=== PATIENT | female | born 1940 | race Caucasian/White ===

== ENCOUNTER → 2016-12-06 | Outpatient (CLI) | payer OTHER ==
[~2016-12-06] MED LIST: ASPCH81X PO; CALC500C70 PO; CLR10 PO; GLUCTAB7 PO; MULT-506 PO; ROSU40TA PO
[2016-12-06 12:16] LABS: BASO % 0.2 %; BASO ABS # 0.01 K/uL (0-0.2); COMPLETE YES; EOS % 3.8 %; IG% 0.2 %; LYMPH % 31.5 %; LYMPH ABS # 1.32 K/uL (1.2-3.4); MEAN CELL VOLUME 90.3 fL (80-100); MEAN CORPUSCULAR HEMOGLOBIN 30.1 pg (25-34); MEAN CORPUSCULAR HGB CONC 33.3 g/dl (32-36); MEAN PLATELET VOLUME 10.1 fL (7.4-10.4); MONO % 10.5 %; NEUT % 53.8 %; PLATELET COUNT 181 K/uL (130-400); RED BLOOD COUNT 4.65 M/uL (4.2-5.4); WHITE BLOOD COUNT 4.19 K/uL (4.8-10.8)
[2016-12-06 12:40] LABS: BLOOD UREA NITROGEN 16 mg/dl (7-18); BUN/CREATININE RATIO 19.8 (10-20); CALCIUM 9.5 mg/dl (8.5-10.1); CARBON DIOXIDE 28 mmol/L (21-32); CHLORIDE 108 mmol/L (98-107); CREATININE 0.82 mg/dl (0.60-1.20); GLUCOSE 115 mg/dl (70-99); POTASSIUM 4.7 mmol/L (3.5-5.1); SODIUM 141 mmol/L (136-145)
== END | disposition home or self-care (01) ==
LOC: C.LAB1850 09:25
PROVIDERS: ATTEND Physician Assistant
DX: S62.03 Fracture of proximal third of navicular [scaphoid] bone of wrist (principal); X58.XXXD Exposure to other specified factors, subsequent encounter

== ENCOUNTER → 2016-12-28 | Day surgery (SDC) | payer OTHER ==
[2016-12-13 09:01] VITALS: Ht 153.7 cm; Wt 63.6 kg
[~2016-12-28] VITALS: Ht 153.7 cm; Wt 63.6 kg
[~2016-12-28] MED LIST changes: +ATROPINE SULFATE 0.1 MG/ML 5ML SYR IV PRN; +CEFAZOLIN 2000 MG/60 ML D5W IV SCH; +DEXAMETHASONE SOD INJ 4 MG/ML VIAL ONE; +EpHEDrine SULFATE INJ 50 MG/ML AMP IV PRN; +FENTANYL CITRATE INJ 50 MCG/1 ML 2 ML VIAL IV PRN; +FENTANYL CITRATE INJ 50 MCG/1 ML 2 ML VIAL ONE; +LACTATED RINGER'S 1000ML 1,000 ML IV SCH; +LEVOFLOXACIN 500 MG TAB PO SCH; +LIDOCAINE HCL 2% 2 ML VIAL (20MG/ML) ONE; +MIDAZOLAM HCL 1 MG/ML 2ML VIAL ONE; +ONDANSETRON INJ 2 MG/ML 2 ML VIAL IV PRN; +ONDANSETRON INJ 2 MG/ML 2 ML VIAL ONE; +OXYCODONE/ACETAMINOPHEN 5-325 TAB PO PRN; +PROPOFOL IV EMULSION 10 MG/ML 20 ML VIAL IV ONE; +ROPIVACAINE 0.5% 5 MG/ML 30 ML VIAL ONE; +SODIUM CHLORIDE 0.9% 1000ML 1,000 ML IV SCH
--- NOTE | 2016-12-28 09:55 | History & Physical Bridge Note ---
H&P Re-Evaluation Bridge Note: I have examined the patient, reviewed the History & Physical and in the interval since the performance of the History & Physical I have noted the following changes of clinical significance: No changes noted
--- NOTE | 2016-12-28 09:56 | Discharge Instructions ---
Discharge Instructions Date of Service Dec 28, 2016. 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 Post Anesthesia Instructions: If you have had General Anesthesia or IV Sedation: * Do not drive today. * Resume driving when surgeon permits. * Do not make important decisions or sign legal documents today. * Call surgeon for: 1. Temperature elevations greater than 101 degrees F. 2. Uncontrollable pain. 3. Excessive bleeding. 4. Persistent nausea and vomiting. 5. Medication intolerance (nausea, vomiting or rash). * For nausea and vomiting use only clear liquids such as: tea, soda, bouillon until nausea subsides, then gradually increase diet as tolerated. * If you have any concerns or questions, call your surgeon's office. If physician is unavailable and it is an emergency, call 911 or go to the nearest emergency room. . Instructions / Follow-Up Instructions / Follow-Up DIET: * Resume previous diet. MEDICATIONS: * Please take your prescriptions as instructed at your pre-op appointment and/ or see medication discharge instructions listed above. * If concerns develop, call your physician's office at . SPECIAL CARE INSTRUCTIONS: * Ice/Elevate as instructed. * Keep dressing clean, dry, intact. * Your surgical extremity may be discolored due to prepping agents used on the skin. A bluish-green tint is a normal variant and should not cause alarm. Call your doctor at [phone] if: * Temperature above 101 degrees * Pain not relieved by pain medicine ordered * There is increased drainage or redness from any incision * You have any unanswered questions, problems or concerns. FOLLOW UP VISIT: * If not already scheduled, please call the office at to schedule a follow-up appointment. Diet Recommendations Recommended Home Diet: resume previous diet Procedures Procedures Performed: 4 corner wrist fusion with scapoidectomy Pending Studies Studies pending at discharge: no Medical Emergencies . Who to Call and When: Medical Emergencies: If at any time you feel your situation is an emergency, please call 911 immediately. . Non-Emergent Contact Non-Emergency issues call your: Specialist Call Non-Emergent contact if: temperature is above 101.5 . . "Provider Documentation" section prepared by Tucker Myers. .
--- NOTE | 2016-12-28 11:48 | [facility] Post Operative Brief Note ---
Immediate Operative Summary Operative Date Dec 28, 2016. Pre-Operative Diagnosis Right Wrist Osteoarthritis, Scaphoid Nonunion Post-Operative Diagnosis same Procedure(s) Performed Right Wrist Open Four Corner Fusion With Scaphoidectomy Surgeon Dr. Marissa Myers Wedding Coordinator Surgeon(s) Tigre Barboza PA-C Estimated Blood Loss 20cc Findings slac wrist Fluids (cc crystalloids) 1000cc Specimens none Drains none Anesthesia LMA Complication(s) None Disposition Recovery Room / PACU
--- NOTE | 2016-12-28 11:55 | [facility] Operative Report ---
Operative Report Date of Service Dec 28, 2016. Operative Report Preoperative diagnosis: [facility] wrist Postoperative diagnosis: Same Surgeon: Louis Welder Plastic: Tamra: No resident or fellow available. Operation: Scaphoid ectomy right wrist with 4 corner fusion/spider plate Perioperative situation: Medically cleared female with intractable wrist pain. Physical exam x-ray MRI scan consistent with end-stage slack wrist with reasonable radiolunate cartilage. Procedure: After the patient was appropriately identified site verified consent verified and antibiotics confirmed as being given the right upper extremity was prepped and draped usual routine fashion with the patient is supine position. The tourniquet was inflated to 250 mmHg after exsanguination of the limb with a rubber Esmarch bandage for follow proximally 50 minutes. A dorsal approach to the wrist was made. Extensor retinaculum was then Z lengthened and open. All tendons were protected. They were appropriately retracted. The joint was then entered. Scaphoid was then identified and resected it was in 2 pieces. Styloid was then resected with [place]. Fluoroscopy revealed removal of the scaphoid. All cartilage was then removed from the remaining carpal bones including the hamate fusiform lunate and the capitate. Using a spider plate technique reaming was carried out to get the miniplate on the position. Once this was done the plate was fixed to the hamate with a 16 mm screw and then with 6 additional screws fixed to the lunate capitate and fusiform with excellent fixation. A centering peg was then removed and the area was then bone grafted nicely with trimmings from the scaphoid. The wound was irrigated prior to this. Once this was completed the capsule was closed with 2-0 Vicryl and the Z lengthened retinaculum with the same. Wound was then irrigated one final time and closed with horizontal mattress 3-0 nylon sutures and dressed appropriately and splinted in a neutral position. Multiple plane fluoroscopy revealed excellent positioning of the bone and of the plate and screws. The procedure was then terminated. The patient was in removed to the recovery room in satisfactory condition having tolerated the procedure well. Estimated blood loss 20 mL, crystalloid 1000 mL. Summary of implants spider plate and 7 screws measuring the length from 10-16 mm screw 1. Dictated not read. Carbon copy to Dr. billingsley in the hospital chart. I attest to the content of the Intraoperative Record and any orders documented therein. Any exceptions are noted below.
--- NOTE | 2016-12-28 12:04 | [facility] Operative Report ---
Operative Report Operative Date Dec 28, 2016. Pre-Operative Diagnosis Right Wrist Osteoarthritis, Scaphoid Nonunion Post-Operative Diagnosis Right wrist same Procedure(s) Performed Right Wrist Open Four Corner Fusion With Scaphoidectomy Surgeon Dr. Marissa Myers Mortgage Loan Counselor Surgeon(s) Tigre Barboza PA-C Estimated Blood Loss 20cc Findings DJD of the right wrist Fluids (cc crystalloids) 1000cc Specimens none Drains none Anesthesia regional block with general anesthesia Complication(s) None Disposition Recovery Room / PACU Indications This 76-year-old white female presented the office with complaints of persisting right wrist pain. She had tried conservative care measures without success. Preoperative x-rays were obtained. She elected to proceed with surgical intervention after being educated about potential risks and outcomes. 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 She was prepped and draped in usual sterile fashion. Please see Dr. Myers's operative report for specifics of the procedure. I was present for the entire case from initial patient positioning through final wound closure. Assistance was provided in tissue traction, hemostasis, hardware placement, final wound closure, and final splinting. Patient was taken to the recovery room in satisfactory condition. I attest to the content of the Intraoperative Record and any orders documented therein. Any exceptions are noted below.
--- NOTE | 2016-12-28 13:10 | Anesthesia Progress Nt - [facility] ---
Anesthesia Post Op Note Date & Time Dec 28, 2016 at 13:10 Vital Signs Pain Intensity: 0 Vital Signs Past 12 Hours Date Time Temp Pulse Resp B/P (MAP) Pulse Ox O2 Delivery O2 Flow Rate FiO2 12/28/16 12:34 36.4 12/28/16 12:31 136/75 (90) 12/28/16 12:29 61 14 12/28/16 12:29 62 14 93 12/28/16 12:27 122/74 (90) 12/28/16 12:26 Room Air 12/28/16 12:24 61 18 12/28/16 12:24 61 18 96 12/28/16 12:22 123/64 (75) 12/28/16 12:19 64 12 98 12/28/16 12:19 61 12 12/28/16 12:16 144/60 (76) 12/28/16 12:14 49 13 98 12/28/16 12:14 49 13 12/28/16 12:12 143/64 (75) 12/28/16 12:09 54 12 97 12/28/16 12:09 56 12 12/28/16 12:07 126/71 (102) 12/28/16 12:04 57 13 12/28/16 12:04 60 13 98 12/28/16 12:01 125/75 (88) 12/28/16 11:59 68 13 12/28/16 11:59 68 13 97 12/28/16 11:56 113/59 (85) 12/28/16 11:55 36.2 67 16 113/59 97 Diffusion Mask 5 12/28/16 10:26 128/81 12/28/16 10:25 55 12/28/16 10:25 55 0 99 12/28/16 10:22 134/86 12/28/16 10:20 56 12/28/16 10:20 60 16 161/84 98 12/28/16 09:42 36.6 62 16 139/77 (97) 96 Room Air Notes Mental Status: alert / awake / arousable, participated in evaluation Pt Amnestic to Procedure: Yes Nausea / Vomiting: adequately controlled Pain: adequately controlled Airway Patency, RR, SpO2: stable & adequate BP & HR: stable & adequate Hydration State: stable & adequate Anesthetic Complications: no major complications apparent
[2016-12-28 13:45] VITALS: BP 122/69; PULSE 62; O2SAT 98
== END | disposition home or self-care (01) ==
LOC: X.SURG 09:31
PROVIDERS: ATTEND Physical Medicine & Rehabilitation Sports Medicine
DX: M19.031 Primary osteoarthritis, right wrist (principal); E78.00 Pure hypercholesterolemia, unspecified; Z79.82 Long term (current) use of aspirin; Z79.899 Other long term (current) drug therapy

== ENCOUNTER → 2017-02-07 | Outpatient (CLI) | payer OTHER ==
[~2017-02-07] MED LIST changes: -ATROPINE SULFATE 0.1 MG/ML 5ML SYR IV PRN; -CEFAZOLIN 2000 MG/60 ML D5W IV SCH; -DEXAMETHASONE SOD INJ 4 MG/ML VIAL ONE; -EpHEDrine SULFATE INJ 50 MG/ML AMP IV PRN; -FENTANYL CITRATE INJ 50 MCG/1 ML 2 ML VIAL IV PRN; -FENTANYL CITRATE INJ 50 MCG/1 ML 2 ML VIAL ONE; -LACTATED RINGER'S 1000ML 1,000 ML IV SCH; -LEVOFLOXACIN 500 MG TAB PO SCH; -LIDOCAINE HCL 2% 2 ML VIAL (20MG/ML) ONE; -MIDAZOLAM HCL 1 MG/ML 2ML VIAL ONE; -ONDANSETRON INJ 2 MG/ML 2 ML VIAL IV PRN; -ONDANSETRON INJ 2 MG/ML 2 ML VIAL ONE; -OXYCODONE/ACETAMINOPHEN 5-325 TAB PO PRN; -PROPOFOL IV EMULSION 10 MG/ML 20 ML VIAL IV ONE; -ROPIVACAINE 0.5% 5 MG/ML 30 ML VIAL ONE; -SODIUM CHLORIDE 0.9% 1000ML 1,000 ML IV SCH
== END | disposition home or self-care (01) ==
LOC: C.RDSM 08:30
PROVIDERS: ATTEND Physical Medicine & Rehabilitation Sports Medicine
DX: S62.031K Displaced fracture of proximal third of navicular [scaphoid] bone of right wrist, subsequent encounter for fracture with nonunion (principal); X58.XXXD Exposure to other specified factors, subsequent encounter

== ENCOUNTER → 2017-03-07 | Outpatient (CLI) | payer OTHER | END | disposition home or self-care (01) | LOC: C.RDSM 15:00 | PROVIDERS: ATTEND Physical Medicine & Rehabilitation Sports Medicine | DX: S62.031K Displaced fracture of proximal third of navicular [scaphoid] bone of right wrist, subsequent encounter for fracture with nonunion (principal); X58.XXXA Exposure to other specified factors, initial encounter ==

== ENCOUNTER → 2017-04-18 | Outpatient (CLI) | payer OTHER | END | disposition home or self-care (01) | LOC: C.RDSM 15:02 | PROVIDERS: ATTEND Physical Medicine & Rehabilitation Sports Medicine | DX: S62.031K Displaced fracture of proximal third of navicular [scaphoid] bone of right wrist, subsequent encounter for fracture with nonunion (principal); X58.XXXD Exposure to other specified factors, subsequent encounter ==

== ENCOUNTER → 2017-05-23 | Outpatient (CLI) | payer OTHER ==
--- NOTE | 2017-05-23 09:00 | DIAGNOSTIC IMAGING REPORT ---
R WRIST MIN 3 VIEWS ROUTINE CLINICAL HISTORY: F/U RIGHT WRIST SURGERY COMPARISON: 04/18/2017 DISCUSSION: Postsurgical changes are visualized. The patient is status post a navicular resection. There is evidence for a posterior carpal fusion with a metallic disc and 7 screws. Arthritic changes are evident. There are no acute fractures. IMPRESSION: Postsurgical and degenerative changes similar to the preceding examination. Electronically signed by: Christ Keene M.D. 05/23/2017 8:59 AM Dictated Date/Time: 05/23/2017 8:58 AM
--- NOTE | 2017-05-23 09:14 | DIAGNOSTIC IMAGING REPORT ---
Right thumb pain CLINICAL HISTORY: RIGHT THUMB PAIN COMPARISON: None. DISCUSSION: There are postsurgical changes present within the wrist. No acute fractures are visualized. There are osteoarthritic changes present the first carpometacarpal joint, metacarpal phalangeal joint, as well as the interphalangeal joint. IMPRESSION: Osteoarthritic change. No acute fractures identified. Electronically signed by: Christ Keene M.D. 05/23/2017 9:13 AM Dictated Date/Time: 05/23/2017 9:12 AM
== END | disposition home or self-care (01) ==
LOC: C.RDSM 11:31
PROVIDERS: ATTEND Physician Assistant
DX: M65.311 Trigger thumb, right thumb (principal)

== ENCOUNTER → 2017-06-01 | Outpatient (CLI) | payer OTHER ==
[~2017-06-01] MED LIST changes: -CLR10 PO; +LORA10CA2 PO
[2017-06-01 10:02] LABS: HEMATOCRIT 40.9 % (37-47); MEAN CELL VOLUME 89.1 fL (80-100); MEAN CORPUSCULAR HEMOGLOBIN 30.5 pg (25-34); MEAN CORPUSCULAR HGB CONC 34.2 g/dl (32-36); MEAN PLATELET VOLUME 9.6 fL (7.4-10.4); PLATELET COUNT 187 K/uL (130-400); RED BLOOD COUNT 4.59 M/uL (4.2-5.4); WHITE BLOOD COUNT 4.69 K/uL (4.8-10.8)
[2017-06-01 10:49] LABS: BLOOD UREA NITROGEN 19 mg/dl (7-18); BUN/CREATININE RATIO 19.3 (10-20); CALCIUM 9.2 mg/dl (8.5-10.1); CARBON DIOXIDE 27 mmol/L (21-32); CHLORIDE 107 mmol/L (98-107); CREATININE 0.96 mg/dl (0.60-1.20); GLUCOSE 123 mg/dl (70-99); POTASSIUM 4.1 mmol/L (3.5-5.1); SODIUM 137 mmol/L (136-145)
== END | disposition home or self-care (01) ==
LOC: C.LAB1850 09:15
PROVIDERS: ATTEND Physician Assistant
DX: Z01.818 Encounter for other preprocedural examination (principal); M65.311 Trigger thumb, right thumb

== ENCOUNTER → 2017-06-14 | Day surgery (SDC) | payer OTHER ==
[2017-05-26 08:10] VITALS: Ht 156.2 cm; Wt 63.6 kg
[~2017-06-14] VITALS: Ht 156.2 cm; Wt 63.6 kg
[~2017-06-14] MED LIST changes: +ATROPINE SULFATE 0.1 MG/ML 5ML SYR IV PRN; +BUPIVACAINE 0.5 % 5 MG/1 ML PF 10ML VIAL ONE; +CEFAZOLIN 2000MG IV PUSH 10 ML IV SCH; +EpHEDrine SULFATE INJ 50 MG/ML AMP IV PRN; +FENTANYL CITRATE INJ 50 MCG/1 ML 2 ML VIAL IV PRN; +FENTANYL CITRATE INJ 50 MCG/1 ML 2 ML VIAL ONE; +HYDROmorphone INJ 1 MG/ML SYR IV PRN; +LACTATED RINGER'S 1000ML 1,000 ML IV SCH; +LIDOCAINE HCL 2% 2 ML VIAL (20MG/ML) ONE; +LIDOCAINE HCL 2% LOCAL 20 ML VIAL ONE; +MIDAZOLAM HCL 1 MG/ML 2ML VIAL ONE; +ONDANSETRON INJ 2 MG/ML 2 ML VIAL IV PRN; +PROPOFOL IV EMULSION 10 MG/ML 20 ML VIAL IV ONE
--- NOTE | 2017-06-14 06:52 | History & Physical Bridge Note ---
H&P Re-Evaluation Bridge Note: I have examined the patient, reviewed the History & Physical and in the interval since the performance of the History & Physical I have noted the following changes of clinical significance: consent obtained.No changes noted
--- NOTE | 2017-06-14 06:54 | Discharge Instructions ---
Discharge Instructions Date of Service Jun 14, 2017. Visit Reason for Visit: Right Thumb Trigger Digit Discharge Discharge Diagnosis / Problem: same Discharge Goals Goal(s): Decrease discomfort, Improve function Medications Stopped Medications Name(s): glucosamine and asa stopped. last dose 5 days ago. Restart Stopped Medication(s): resume/use all meds as scripts direct Activity Recommendations Activity Limitations: as noted below Lifting Limitations: until after follow-up appointment Exercise/Sports Limitations: until after follow-up appointment May Resume Sexual Activity: after follow-up appointment Shower/Bathe: keep incision dry Driving or Machine Use: resume 1 day after discharge Anesthesia . Post Anesthesia Instructions: If you have had General Anesthesia or IV Sedation: * Do not drive today. * Resume driving when surgeon permits. * Do not make important decisions or sign legal documents today. * Call surgeon for: 1. Temperature elevations greater than 101 degrees F. 2. Uncontrollable pain. 3. Excessive bleeding. 4. Persistent nausea and vomiting. 5. Medication intolerance (nausea, vomiting or rash). * For nausea and vomiting use only clear liquids such as: tea, soda, bouillon until nausea subsides, then gradually increase diet as tolerated. * If you have any concerns or questions, call your surgeon's office. If physician is unavailable and it is an emergency, call 911 or go to the nearest emergency room. . Instructions / Follow-Up Instructions / Follow-Up The following are instructions to follow after minor hand surgery. ACTIVITY RECOMMENDATIONS: * Minimize activity until your first visit after surgery. * No excessive walking, jogging, sports or laboring. * Return to activity is individualized. Most patients are able to return to everyday activities within 2 weeks. * Return to sports or intensive labor usually occurs at 1-2 months. * DRIVING: Driving may be resumed when you feel you have adequate pain control and use of the hand. * BATHING: You may shower or sponge-bathe immediately after surgery. The dressing will need to be covered with a plastic bag or plastic wrap until the dressing is changed on the fourth or fifth day after surgery. Once the dressing has been changed on the fourth or fifth day after surgery, you may shower and get the incision wet. * Wash with regular soap and water. * Do not bathe (submerge the incision), soak, swim or use a hot tub until the incision is completely healed over with normal skin and the doctor has given the OK to proceed. * There is no need to apply any ointments, powders or salves to your incision. * Do not apply alcohol or hydrogen peroxide directly to the incision. Diluted peroxide (50:50 mixture with sterile saline) may be used to clean dried blood from around the incision area. WORK/SCHOOL: * You may return to sedentary work or school when you are feeling comfortable. This is usually 3-7 days after surgery. * Expect increased discomfort with increased activity. Continue to elevate and ice the hand as much as possible. DIET: * Resume previous diet. MEDICATIONS: * You will have a prescription for pain medication and an anti-inflammatory medication after surgery. Use the pain pills for severe pain and the anti-inflammatory for less severe pain. * Once the pain pills have run out, try to use the anti-inflammatory. If this is not effective then contact the office for assistance. * The pain medication may cause nausea, constipation and sleepiness. You should see how they affect you before driving or similar activity. * The anti-inflammatory may cause stomach upset and bleeding. If this occurs, let your doctor know immediately . * Some patients may need blood clot prevention. This can be done with either a pill or a simple shot. Your doctor will advise you on when to begin these medications and how to take them. * Do not take aspirin or other anti-inflammatory products (i.e. Advil or Aleve ) if taking blood thinner medication. * Take a stool softener like Colace or a stimulant like Senokot to prevent constipation. SPECIAL CARE INSTRUCTIONS: ICE: * Do not apply ice directly to the skin. * Use a thin dressing or stockinet between the skin and ice bag. The dressing in place after surgery will suffice. * Apply ice for 20-30 minutes and repeat every 2-4 hours. This is especially important for the first 3-7 days after surgery. * Once the pain improves, use ice as needed. ELEVATION: * Keep your hand elevated at or above the level of your heart as much as possible. * Expect some increased discomfort and swelling if you allow your hand to hang down for any length of time. DRESSING: * Your dressing will be changed 4-5 days after surgery by the physical therapist or physician's recreation assistant. Leave your dressing intact until this time. * You may then change your dressing daily with clean dry gauze or Band-aids and a soft wrap or stockinet. * Always wash your hands prior to touching the incision area. * Once the stitches are removed, you may leave the wound open to air or cover with a thin bandage. * There is no need to apply any ointments, powders or salves to your incision. * Expect some bloody drainage for the first few days after surgery. * Leave the tape strips in place (if present) for 5-7 days. * The initial dressing after surgery may become soaked with blood or fluid which is normal. You may reinforce your dressing with clean, dry gauze as needed. BRACE: * Bracing is generally not needed after routine hand surgery. THERAPY: * Physical therapy may be prescribed after your surgery. * For carpal tunnel and trigger digit surgery you may begin moving your fingers and wrist immediately after surgery as tolerated. * Be careful to not overuse. * Once the sutures are removed, further range of motion exercises can be performed. * Hand incisions may be very sensitive for a few months after surgery so avoid excessive pressure on the incision. If necessary, use a padded weightlifters' glove. * You may massage the incision with skin cream to make it less sensitive and reduce scarring. * Hand strength usually returns with normal use. * If needed, squeezing a soft sponge or Play-dough may help. * Your doctor will recommend physical therapy if necessary. PROBLEMS/QUESTIONS: * If you have any problems such as severe pain, numbness, tingling or high fevers or if you have any questions, please contact the office at [phone]. * It is not uncommon to have some numbness and tingling after the surgery especially if you have had a nerve block done. This should gradually improve over the first 1- 2 days. If this persists longer or worsens then contact the office. FOLLOW UP VISIT: * If not already scheduled, please call the office at to schedule follow-up appointments for approximately 10 days, 6 weeks and 3 months after surgery. Diet Recommendations Recommended Home Diet: resume previous diet Procedures Procedures Performed: see op note Pending Studies Studies pending at discharge: no Medical Emergencies . Who to Call and When: Medical Emergencies: If at any time you feel your situation is an emergency, please call 911 immediately. . Non-Emergent Contact Non-Emergency issues call your: Specialist Call Non-Emergent contact if: temperature is above 101.5, wound has increased drainage, wound has increased redness, wound has increased pain . . "Provider Documentation" section prepared by Tucker Myers. .
--- NOTE | 2017-06-14 07:31 | [facility] Post Operative Brief Note ---
Immediate Operative Summary Operative Date Jun 14, 2017. Pre-Operative Diagnosis Right Thumb Trigger Digit Post-Operative Diagnosis Same Procedure(s) Performed Right Thumb Trigger Finger Release Surgeon Dr. Myers Medical Technologist Chemistry Surgeon(s) Dr. Cole Hutchins, Fellow Estimated Blood Loss Trace Findings A1 constriction Fluids (cc crystalloids) 500cc Specimens None Drains none Anesthesia local/sedation Complication(s) None Disposition
[2017-06-14 07:34] VITALS: TEMP 36.5
[2017-06-14 08:13] VITALS: BP 145/83; PULSE 52; O2SAT 97
--- NOTE | 2017-06-14 08:18 | Anesthesia Progress Nt - [facility] ---
Anesthesia Post Op Note Date & Time Jun 14, 2017 at 08:17 Vital Signs Pain Intensity: 0 Vital Signs Past 12 Hours Date Time Temp Pulse Resp B/P (MAP) Pulse Ox O2 Delivery O2 Flow Rate FiO2 06/14/17 08:13 52 18 145/83 (103) 97 Room Air 06/14/17 07:34 36.5 54 16 111/73 (86) 97 Room Air 06/14/17 06:31 36.6 62 16 138/76 (96) 98 Room Air Notes Mental Status: alert / awake / arousable, participated in evaluation Pt Amnestic to Procedure: Yes Nausea / Vomiting: adequately controlled Pain: adequately controlled Airway Patency, RR, SpO2: stable & adequate BP & HR: stable & adequate Hydration State: stable & adequate Anesthetic Complications: no major complications apparent
--- NOTE | 2017-06-14 08:22 | OPERATIVE REPORT ---
DATE OF OPERATION: 06/14/2017 SURGEON: Dr. Myers. CORPORATE DEVELOPMENT MANAGER: Liset. No PA available. PREOPERATIVE DIAGNOSIS: Right trigger thumb. POSTOPERATIVE DIAGNOSIS: Same. OPERATION PERFORMED: A1 palma release, right thumb. PERIOPERATIVE SITUATION: Medically cleared female with intractable triggering of her thumb, wants to proceed with surgical treatment. OPERATION: The patient appropriately identified, site verified, consent verified, 2 grams of Ancef confirmed as being given. The painful nodule identified and the area was injected with 4 mL of 0.5% plain Marcaine and 4 mL of 2% plain lidocaine. The arm was then prepped and draped in usual routine fashion. Tourniquet was then inflated to 250 mmHg after exsanguination of limb with a rubber Esmarch bandage for a total of 11 minutes. An incision made over the MP flexion crease of the thumb. Skin scratch made, blunt dissection down to the neurovascular bundle, which was crossing and this was lifted off and then the area of the A1 palma constriction identified. There was some adhesive inflammatory tissue. This was left off. The palma was then identified and then released. The thumb could then be moved through a full range of motion both passively under her active control and there was no triggering. The wound was then irrigated and closed with 2 horizontal mattress sutures in the middle part of the incision and then a simple mattress suture on both the radial and ulnar limb of the incision. It was then applied with Dermabond and then light piece of Xeroform and a light dressing with Op-Site. The patient was then transferred to holding area in satisfactory condition having tolerated the procedure well. Estimated blood loss was negligible. Crystalloid 500 mL. No DVT prophylaxis required. I attest to the content of the Intraoperative Record and any orders documented therein. Any exception s are noted below.
== END | disposition home or self-care (01) ==
LOC: X.SURG 06:15
PROVIDERS: ATTEND Physical Medicine & Rehabilitation Sports Medicine
DX: M65.311 Trigger thumb, right thumb (principal); E78.5 Hyperlipidemia, unspecified; M19.90 Unspecified osteoarthritis, unspecified site; Z79.82 Long term (current) use of aspirin; Z79.899 Other long term (current) drug therapy; F17.200 Nicotine dependence, unspecified, uncomplicated

== ENCOUNTER → 2017-10-17 | Outpatient (CLI) | payer OTHER ==
[~2017-10-17] MED LIST changes: -ATROPINE SULFATE 0.1 MG/ML 5ML SYR IV PRN; -BUPIVACAINE 0.5 % 5 MG/1 ML PF 10ML VIAL ONE; -CEFAZOLIN 2000MG IV PUSH 10 ML IV SCH; -EpHEDrine SULFATE INJ 50 MG/ML AMP IV PRN; -FENTANYL CITRATE INJ 50 MCG/1 ML 2 ML VIAL IV PRN; -FENTANYL CITRATE INJ 50 MCG/1 ML 2 ML VIAL ONE; -HYDROmorphone INJ 1 MG/ML SYR IV PRN; -LACTATED RINGER'S 1000ML 1,000 ML IV SCH; -LIDOCAINE HCL 2% 2 ML VIAL (20MG/ML) ONE; -LIDOCAINE HCL 2% LOCAL 20 ML VIAL ONE; -MIDAZOLAM HCL 1 MG/ML 2ML VIAL ONE; -ONDANSETRON INJ 2 MG/ML 2 ML VIAL IV PRN; -PROPOFOL IV EMULSION 10 MG/ML 20 ML VIAL IV ONE
== END | disposition home or self-care (01) ==
LOC: C.RDSM 15:40
PROVIDERS: ATTEND Physical Medicine & Rehabilitation Sports Medicine
DX: S62.031K Displaced fracture of proximal third of navicular [scaphoid] bone of right wrist, subsequent encounter for fracture with nonunion (principal); X58.XXXD Exposure to other specified factors, subsequent encounter

== ENCOUNTER → 2018-01-23 | Outpatient (CLI) | payer OTHER | END | disposition home or self-care (01) | LOC: C.RDSM 10:42 | PROVIDERS: ATTEND Physical Medicine & Rehabilitation Sports Medicine | DX: M19.031 Primary osteoarthritis, right wrist (principal) ==